=== PATIENT | female | born 1990 | race Caucasian/White ===

== ENCOUNTER → 2024-04-06 | Outpatient (CLI) | payer OTHER, SELFPAY ==
--- NOTE | 2024-04-06 | LES_PTH ---
PATIENT: BREEZY MALONEY LOC: [facility] U#:[id number] AGE/SX: 33/F ROOM: RE04/06/[address]: Dr. Joey Perez MD : 1990 BED: DIS: 04/06/2024 SPEC #: [id number] RECD: 04/07/24 07:55 STATUS: CLAIRE SANTIZODionne #: [id number] JANA: 04/06/24 00:[address]: Joey Perez DEPT: SURGICAL PATHOLOGY RECD BY: Seymour Cannon Tissues: Skin of external ear, NOS Procedures: Surgery Specimen Level IV HEADER OPERATION: Permanent pathology PRE-OP DIAGNOSIS: Left ear lesion TISSUE SUBMITTED: Left ear lesion MICROSCOPIC DIAGNOSIS Left ear lesion, excision: Benign vascular proliferation, favor pyogenic granuloma (lobular capillary hemangioma) with ulceration and associated acute inflammation and fibrinous exudation. Negative for malignancy. 04/08/2024 COMMENT Case has been reviewed in consultation with Dr. Mckeon who concurs with the above diagnosis. IDC:FA MICROSCOPIC DESCRIPTION Slides are reviewed. GROSS DESCRIPTION Received in fixative is one container labeled with the patient's name and designated Left ear lesion. The specimen consists of a piece of greenberg-white skin measuring 0.7 x 0.7cm and up to 0.4cm in thickness. The specimen is inked, bisected and submitted in one cassette. 04/07/2024 TC:5 CPT:66126
== END | disposition home or self-care (01) ==
PROVIDERS: Referring Provider Otolaryngology; Visit Provider Otolaryngology
DX: L98.0 Pyogenic granuloma (principal)
CPT/HCPCS: 88305